=== PATIENT | male | born 1985 | race Caucasian/White ===

== ENCOUNTER 2022-05-06 19:10 | Emergency (ER) | payer SELFPAY ==
--- NOTE | 2022-05-06 | ECG_ITS ---
Test Reason : cp Blood Pressure : / mmHG Vent. Rate : 086 BPM Atrial Rate : 086 BPM P-R Int : 136 ms QRS Dur : 076 ms QT Int : 370 ms P-R-T Axes : 051 043 057 degrees QTc Int : 442 ms Normal sinus rhythm Possible Left atrial enlargement Left ventricular hypertrophy ( Sokolow-Leyva , Romhilt-Vigil ) Abnormal ECG No previous ECGs available Referred By: Generic ED Physician Electronically Signed By:PORSHA YEUNG MD
[2022-05-06 19:24] VITALS: BP 132/73; PULSE 93; RESP 16; O2SAT 95; BMI 19.1
--- NOTE | 2022-05-06 21:00 | PC.NURSE ---
Pt c/o chest pain and requesting help with detox from opiates and cocaine. Pt ambivalent with blood work and urine sample. Pt requesting to speak with family prior to having bloodwork and urine. pt given ED phone. Pt chinese speaking
[2022-05-06 21:01] LABS: Ethanol < 10 mg/dL
[2022-05-06 21:02] LABS: Anion Gap 12 (12-20); Blood Urea Nitrogen 11 mg/dL (9-16); Calcium 9.6 mg/dL (8.4-10.2); Carbon Dioxide 27 mmol/L (22-29); Chloride 103 mmol/L (96-108); Creatinine Clr Calc Pharmacy 110.3; Estimated Glomerular Filt Rate > 60; Glucose Random 81 mg/dL (60-115); Potassium 4.2 mmol/L (3.3-5.1); Sodium 138 mmol/L (135-145)
[2022-05-06 21:05] LABS: Amphetamine Screen Urine Not Detected (Not Detect); Barbiturates, Urine Not Detected (Not Detect); Benzodiazepines Screen Urine Not Detected (Not Detect); Cannabinoid Screen Urine POSITIVE (Not Detect); Cocaine Screen Urine POSITIVE (Not Detect); Fentanyl, urine POSITIVE (Not Detect); Opiate Screen Urine POSITIVE (Not Detect); Phencyclidine Screen Urine Not Detected (Not Detect)
[2022-05-06 21:07] LABS: Troponin-I High Sensitivity < 3.5 ng/L (<3.5-35.0)
--- NOTE | 2022-05-06 21:30 | PC.NURSE ---
Pt agreeable to blood work and urine sample Blood and urine sent Pt denies SI and HI at this time but states sometimes hears voices. Will continue to monitor
--- NOTE | 2022-05-06 22:08 | ED_ITS ---
HPI - Alcohol General Chief Complaint: ETOH/Substance Use Stated Complaint: ETOH Time Seen by Provider: 05/06/22 21:41 Source: patient and EMS Mode of arrival: EMS Limitations: no limitations History of Present Illness HPI narrative: This is a 37-year-old male with a history of polysubstance abuse who presents today seeking detox resources. Patient tells me he sniffs cocaine and heroin daily. His last use was just prior to arrival. He uses up to 1 bundle of heroin daily. He denies any IV drug abuse. He denies any alcohol use. He does smoke cigarettes. He has no physical complaints. He denies any suicidal or homicidal ideations. Related Data Allergies Allergy/AdvReac Type Severity Reaction Status Date / Time seafood Allergy Hives Verified 05/06/22 19:57 Review of Systems Review of Systems: Yes all other systems are reviewed and are negative Constitutional: Constitutional: Reports no additional constitutional complaints, Denies body ache(s), Denies chills, Denies fever(s), Denies headache(s) and Denies weakness Eyes: Eyes: Reports no additional eye complaints and Denies change in vision ENT: Reports system reviewed and no additional complaints, except as documented, Denies dizziness, Denies headache(s), Denies nasal congestion, Denies nasal discharge and Denies neck pain Cardiovascular: Cardiovascular: Reports no additional cardiovascular complaints, Denies chest pain, Denies leg edema and Denies dyspnea Respiratory: Respiratory: Reports no additional respiratory complaints, Denies cough and Denies dyspnea Gastrointestinal: Gastrointestinal: Reports no additional gastrointestinal complaints, Denies abdominal pain, Denies diarrhea, Denies nausea and Denies vomiting Genitourinary: Genitourinary: Denies urinary incontinence Musculoskeletal: Musculoskeletal: Reports no additional musculoskeletal complaints, Denies back pain, Denies arthralgias, Denies joint swelling, Denies neck pain, Denies numbness and Denies tingling Integumentary/Breasts: Skin/Breast: Reports system reviewed and no additional complaints, except as docu and Denies rash Neurologic: Reports system reviewed and no additional complaints, except as documented, Denies dizziness, Denies headache(s), Denies numbness, Denies tingling and Denies weakness Psychiatric: Psychiatric: Denies suicidal ideation PMFSH Past Medical History Attestation statement: The following information was validated with the patient. Source: old records reviewed and nursing notes reviewed Social History Social History Advance Directives: No Advance Directives Information Provided: No Physical Exam ED Vital Signs: Vital Signs - 24 hr 05/06/22 19:24 05/06/22 22:24 05/07/22 00:23 Pulse Rate 93 64 67 Respiratory Rate 16 18 18 Blood Pressure 132/73 115/56 L 118/57 L Pulse Oximetry 95 100 99 Oxygen Delivery Method Room Air Room Air Room Air BMI result Body Mass Index 19.1 Const Other: Lethargic but arouses to verbal Orientation/consciousness: patient oriented x3 Limitations: no limitations HENMT Head: Yes normal to inspection Ears: hearing grossly normal bilaterally General nose exam: Normal external nose present Face and sinus: Yes normal facial exam Mouth: Normal oral and palatal mucosa present Throat: Yes posterior oropharynx normal and Yes tonsils normal Eyes General: appearance normal, both eyes and all related structures Pupils: Equal, round and reactive pupils present Neck Neck: Yes normal visual inspection Chest Chest palpation & inspection: normal inspection of the chest Resp Effort & Inspection: normal respiratory effort Auscultation: clear to auscultation bilaterally Cardio Rate: regular rate Rhythm: regular rhythm Peripheral pulses: Peripheral pulses 2+ throughout GI Inspection: Yes normal to inspection Back/Spine/Pelvis Thoracic/Lumbar Spine: thoracic and lumbar spine normal to inspection Skin General skin exam: no rashes or lesions noted Neuro General: patient oriented x3 and moves all extremities Cranial nerves: Yes Equal, round and reactive pupils present Cognition (Neuro): normal cognition Gait exam (Neuro): Normal gait present Motor exam (neuro): 5/5 motor strength present throughout Sensory Exam: Normal double simultaneous stimulation for sensation Extrem General: Yes normal to inspection, Yes no pedal edema and Yes no calf tenderness Course Reevaluation(s) Reevaluation #1: Patient is still lethargic. He will need to be re-evaluated and discharged when he is clinically sober. Placed in physician observation pending disposition. Sign-out to Dr. Carballo pending above Time: 02:00 MDM - Alcohol MDM Narrative Medical decision making narrative: 37-year-old male with a history of polysubstance use here seeking detox resources. No suicidal thoughts. No physical complaints. No concern for acute ingestion or trauma. Patient did use heroin and cocaine prior to arrival. He is lethargic but arouses to verbal. Normal neurological exam. Normal vital signs. He initially was complaining of some chest pain but denies chest pain to me. Will obtain a organ recovery coordinator consultation Medical Records Attestation: I reviewed the patient's medical records. Lab Data Attestation: I reviewed the patient's lab results. Result diagrams: 05/06/22 20:42 Labs: Lab Results 05/06/22 05/06/22 05/06/22 Range/Units 20:42 20:42 20:42 Sodium 138 (135-145) mmol/L Potassium 4.2 (3.3-5.1) mmol/L Chloride 103 (96-108) mmol/L Carbon Dioxide 27 (22-29) mmol/L Anion Gap 12 (12-20) BUN 11 (9-16) mg/dL Creatinine 0.79 (0.5-1.4) mg/dL Estim Creat Clear Calc 110.3 Estimated GFR > 60 Random Glucose 81 (60-115) mg/dL Calcium 9.6 (8.4-10.2) mg/dL Troponin I High Sens < 3.5 (<3.5-35.0) ng/L Urine Opiates Screen (Not Detect) Urine Fentanyl Screen (Not Detect) Ur Barbiturates Screen (Not Detect) Ur Phencyclidine Scrn (Not Detect) Ur Amphetamines Screen (Not Detect) U Benzodiazepines Scrn (Not Detect) Urine Cocaine Screen (Not Detect) U Marijuana (THC) Screen (Not Detect) Ethyl Alcohol < 10 mg/dL 05/06/22 Range/Units 20:42 Sodium (135-145) mmol/L Potassium (3.3-5.1) mmol/L Chloride (96-108) mmol/L Carbon Dioxide (22-29) mmol/L Anion Gap (12-20) BUN (9-16) mg/dL Creatinine (0.5-1.4) mg/dL Estim Creat Clear Calc Estimated GFR Random Glucose (60-115) mg/dL Calcium (8.4-10.2) mg/dL Troponin I High Sens (<3.5-35.0) ng/L Urine Opiates Screen POSITIVE H (Not Detect) Urine Fentanyl Screen POSITIVE H (Not Detect) Ur Barbiturates Screen Not Detected (Not Detect) Ur Phencyclidine Scrn Not Detected (Not Detect) Ur Amphetamines Screen Not Detected (Not Detect) U Benzodiazepines Scrn Not Detected (Not Detect) Urine Cocaine Screen POSITIVE H (Not Detect) U Marijuana (THC) Screen POSITIVE H (Not Detect) Ethyl Alcohol mg/dL ECG Data ECG #1: Attestation: I personally reviewed and interpreted this ECG as follows: ECG interpretation date: 05/06/22 ECG interpretation time: 19:31 Interpretation: Normal sinus rhythm with a rate 86, normal GA, normal QRS, normal QT. LVH Discharge Plan Discharge Clinical Impression: Polysubstance abuse Patient Disposition: Still a Patient Instructions: Polysubstance Abuse (ED) Additional Instructions: Follow-up with the [facility] Referrals: Physician,None [Primary Care Provider] -
[2022-05-06 22:24] VITALS: BP 115/56; PULSE 64; RESP 18; O2SAT 100
[2022-05-07 00:23] VITALS: BP 118/57; PULSE 67; RESP 18; O2SAT 99
[2022-05-07 02:15] VITALS: BP 116/58; PULSE 68; RESP 18; O2SAT 99
--- NOTE | 2022-05-07 05:30 | PC.NURSE ---
Pt woke up alert and oriented. Encouraged pt to get a ride home as he will be discharged home. Pt now requesting help for detox. Dr. Carballo made aware.
--- NOTE | 2022-05-07 06:18 | PC.NURSE ---
N crisis referral completed
[2022-05-07 06:25] VITALS: BP 122/61; PULSE 65; RESP 18; O2SAT 99
--- NOTE | 2022-05-07 08:51 | PC.NURSE ---
financial coach and BHN at bedside assessing pt at this time
--- NOTE | 2022-05-07 10:45 | MHC.RECOVSUP ---
Recovery Support note: Patient is a 37 year old Chinese speaking male who presented to [facility] ED seeking detox. Patient is uninsured at this time. Patient reports using one bundle a day intranasally in addition to crack cocaine. Referred to [facility] and accepted for admission. Discussed plan with patient and [facility] oiler and greaser. No questions at this time. Patient will be transported to facility via [employer].
[2022-05-07 11:43] VITALS: BP 157/60; PULSE 97; RESP 16; O2SAT 98
--- NOTE | 2022-05-07 12:13 | MHC.RECOVSUP ---
Recovery Support note: Patient discharged to [facility] for transportation to [facility]. Patient declined services, stating something is up. This conventional underwriter encouraged patient to go to treatment and patient continued to decline.
== END 2022-05-07 11:44 | disposition other institution (70) ==
PROVIDERS: Emergency Medicine; Emergency Provider Emergency Medicine Emergency Medical Services
DX: F19.10 Other psychoactive substance abuse, uncomplicated (principal); R53.83 Other fatigue
CPT/HCPCS: 36415; 80048; 80307; 82077; 84484; 93005; 99284

== ENCOUNTER 2022-07-26 17:27 | Emergency (ER) | payer SELFPAY ==
--- NOTE | ~2022-07-26 | CT_ITS ---
EXAMINATION: CT ABDOMEN AND PELVIS WITHOUT CONTRAST CLINICAL INFORMATION: Flank pain COMPARISON: None TECHNIQUE: Multidetector volumetric imaging was performed from the superior aspect of the liver through the pubic symphysis. Sagittal and coronal reformatted images were obtained on the technologist's workstation. This CT examination was performed using dose optimization techniques as appropriate, variously including the following: *Automated exposure control *Adjustment of mA and/or kV according to patient size (this includes techniques or standardized protocols for targeted exams where dose is matched to indication/reason for exam; i.e. extremities or head) *Use of iterative reconstruction technique DLP: 347 mGy-cm FINDINGS: LUNG BASES: Minimal dependent atelectasis. LIVER, GALLBLADDER, AND BILIARY TREE: The liver is normal in size, shape, and attenuation. No focal hepatic lesion or biliary ductal dilatation is identified. The gallbladder is contracted and not adequately evaluated. PANCREAS: Unremarkable. SPLEEN: Unremarkable. ADRENAL GLANDS: Unremarkable. KIDNEYS AND URETERS: No hydronephrosis or obstructing calculus identified bilaterally. There is a 3 mm calculus in the mid left kidney. BLADDER: Minimally distended and grossly unremarkable. GASTROINTESTINAL TRACT: No evidence of bowel obstruction. No significant colonic wall thickening is seen. The appendix is unremarkable. No free air is seen. ABDOMINAL WALL: No significant hernia is appreciated. LYMPH NODES: No lymphadenopathy is seen, though assessment is limited in the absence of intravenous contrast. VASCULAR: Mild atherosclerotic calcification. PELVIC VISCERA: Unremarkable. Trace free fluid suspected. OSSEOUS STRUCTURES: Unremarkable. CT/CT abdomen pelvis wo IV con IMPRESSION: 1. No hydronephrosis or obstructing calculus. Mid left renal calculus noted measuring 3 mm. 2. Trace pelvic free fluid, of uncertain etiology. 3. Contracted gallbladder, not adequately assessed.
[2022-07-26 17:34] VITALS: BP 105/82; PULSE 120; RESP 18; TEMP 37; O2SAT 98; BMI 18.1
[2022-07-26 17:56] LABS: MANUAL DIFF FLAG NO
[2022-07-26 18:06] LABS: Basophils Percent Auto 0.5 % (0-2); Eosinophils Percent Auto 0.1 % (0-4); Hematocrit 38.2 % (42.0-52.0); Hemoglobin 12.6 g/dl (14.0-18.0); Imm Gran Abs Auto 0.03 X10*3/uL (0.00-0.03); Imm Gran Pct Auto 0.3 % (0.0-0.4); Lymphocytes Absolute Auto 2.2 X10*3/uL (1.2-4.9); Lymphocytes Percent Auto 24.8 % (20-40); Mean Corpuscular Hemoglobin 29.9 pg (27.0-33.0); Mean Corpuscular Volume 90.7 fL (80.0-98.0); Mean Platelet Volume 9.4 fL (9.4-12.4); Monocytes Absolute Auto 0.4 X10*3/uL (0.1-1.2); Monocytes Percent Auto 4.3 % (2-11); Neutrophils Absolute Auto 6.2 x10*3/uL (2.0-8.3); Platelet Count 352 X10*3/uL (160-400); Red Blood Count 4.21 X10*6/uL (4.60-5.80); Red Cell Distribution Width 13.9 % (11.0-16.0); White Blood Count 8.9 X10*3/uL (4.8-10.8)
[2022-07-26 18:11] LABS: Anion Gap 15 (12-20); Blood Urea Nitrogen 13 mg/dL (9-16); Calcium 9.5 mg/dL (8.4-10.2); Carbon Dioxide 28 mmol/L (22-29); Chloride 103 mmol/L (96-108); Creatinine Clr Calc Pharmacy 90.8; Estimated Glomerular Filt Rate > 60; Glucose Random 101 mg/dL (60-115); Potassium 4.6 mmol/L (3.3-5.1); Sodium 141 mmol/L (135-145)
[2022-07-26 20:49] VITALS: BP 151/95; PULSE 122; RESP 18; TEMP 37.2; O2SAT 100
[2022-07-26] MEDS: Acetaminophen 325 MG TABLET 650 MG PO (20:51)
[2022-07-26 22:07] LABS: Appearance Urine Clear; Color Urine Dark Yellow; Glucose Urine UA Negative (Negative); Leukocyte Esterase Urine Small (1+) (Negative); Nitrite Urine Negative (Negative); PH 5.5 (5.0-9.0); Specific Gravity - Urine 1.025 (1.005-1.025); Urine Blood Negative (Negative); Urine Ketones Trace mg/dL (Negative); Urine Protein Trace mg/dL (Neg-Trace)
[2022-07-26 22:32] LABS: Bacteria Urine None Seen (None Seen); Calcium Oxalate Crystals Urine Present; Squamous Epithelial Cell Urine 0-2 /HPF (0-2); UACC Culture Trigger YES; WBC Urine 0-5 /HPF (0-5)
--- NOTE | 2022-07-27 00:08 | ED.MALEGU ---
HPI - Male Genitourinary General Chief complaint: Urogenital-Male Stated complaint: abd pain Time Seen by Provider: 07/27/22 00:08 Source: patient Mode of arrival: ambulatory Related Data Previous Rx's Medication Instructions Recorded levofloxacin 750 mg tablet 750 mg PO DAILY #7 tabs 07/27/22 Allergies Allergy/AdvReac Type Severity Reaction Status Date / Time seafood Allergy Hives Verified 05/06/22 19:57 [facility] Social History Social History Patient Tobacco Use Status: Current everyday Tobacco user Use of substances other than those prescribed or required for medical reasons: Yes Substance Use Type: Crack/Cocaine Advance Directives: No Advance Directives Information Provided: Yes Physical Exam Vital Signs: Vital Signs: Last Vital Signs Temp 98.9 F 07/26/22 20:49 Pulse 74 07/27/22 02:18 Resp 14 07/27/22 02:18 BP 109/66 07/27/22 02:18 Pulse Ox 99 07/27/22 02:18 O2 Del Method 07/27/22 02:18 BMI result Body Mass Index 18.1 MDM - Male Genitourinary Lab Data Result diagrams: 07/26/22 17:50 07/26/22 17:50 Labs: Lab Results 07/26/22 07/26/22 07/26/22 Range/Units 17:50 17:50 20:56 WBC 8.9 (4.8-10.8) X10*3/uL RBC 4.21 L (4.60-5.80) X10*6/uL Hgb 12.6 L (14.0-18.0) g/dl Hct 38.2 L (42.0-52.0) % MCV 90.7 (80.0-98.0) fL MCH 29.9 (27.0-33.0) pg MCHC 33.0 (31.0-36.0) g/dl RDW 13.9 (11.0-16.0) % Plt Count 352 (160-400) X10*3/uL MPV 9.4 (9.4-12.4) fL Immature Gran % (Auto) 0.3 (0.0-0.4) % Neut % (Auto) 70.0 (45-73) % Lymph % (Auto) 24.8 (20-40) % [place] % (Auto) 4.3 (2-11) % Eos % (Auto) 0.1 (0-4) % Baso % (Auto) 0.5 (0-2) % Lymph # (Auto) 2.2 (1.2-4.9) X10*3/uL [place] # (Auto) 0.4 (0.1-1.2) X10*3/uL Eos # (Auto) 0.0 (0.0-0.4) X10*3/uL Baso # (Auto) 0.0 (0.0-0.2) X10*3/uL Abs Immat Gran (auto) 0.03 (0.00-0.03) X10*3/uL Absolute Neuts (auto) 6.2 (2.0-8.3) x10*3/uL Absolute Nucleated RBC 0.000 (0.0-0.012) X10*3/uL Nucleated RBC % (auto) 0.0 (0.0-0.2) /100WBC Sodium 141 (135-145) mmol/L Potassium 4.6 (3.3-5.1) mmol/L Chloride 103 (96-108) mmol/L Carbon Dioxide 28 (22-29) mmol/L Anion Gap 15 (12-20) BUN 13 (9-16) mg/dL Creatinine 0.91 (0.5-1.4) mg/dL Estim Creat Clear Calc 90.8 Estimated GFR > 60 Random Glucose 101 (60-115) mg/dL Calcium 9.5 (8.4-10.2) mg/dL Total Bilirubin 0.4 (0.0-1.0) mg/dL Direct Bilirubin 0.2 (0.0-0.5) mg/dL AST 20 (5-37) U/L ALT 10 (0-40) U/L Alkaline Phosphatase 50 (39-117) U/L Total Protein 7.7 (6.5-8.0) g/dL Albumin 4.5 (3.5-5.0) g/dL Lipase 16 (8-78) U/L Urine Color Dark Yellow Urine Appearance Clear Urine pH 5.5 (5.0-9.0) Ur Specific [place] 1.025 (1.005-1.025) Urine Protein Trace (Neg-Trace) mg/dL Urine Glucose (UA) Negative (Negative) mg/dL Urine Ketones Trace (Negative) mg/dL Urine Blood Negative (Negative) Urine Nitrite Negative (Negative) Ur Leukocyte Esterase Small (1+) H (Negative) Urine RBC 3-5 H (0-2) /HPF Urine WBC 0-5 (0-5) /HPF Ur Squamous Epith Cells 0-2 (0-2) /HPF Calcium Oxalate Crystal Present Urine Bacteria None Seen (None Seen) Hyaline Casts 3-5 (0-2) /LPF Chlam trachomat DNA PCR (Not Detect.) N.gonorrhoeae DNA (PCR) (Not Detect.) 07/27/22 Range/Units 02:25 WBC (4.8-10.8) X10*3/uL RBC (4.60-5.80) X10*6/uL Hgb (14.0-18.0) g/dl Hct (42.0-52.0) % MCV (80.0-98.0) fL MCH (27.0-33.0) pg MCHC (31.0-36.0) g/dl RDW (11.0-16.0) % Plt Count (160-400) X10*3/uL MPV (9.4-12.4) fL Immature Gran % (Auto) (0.0-0.4) % Neut % (Auto) (45-73) % Lymph % (Auto) (20-40) % [place] % (Auto) (2-11) % Eos % (Auto) (0-4) % Baso % (Auto) (0-2) % Lymph # (Auto) (1.2-4.9) X10*3/uL [place] # (Auto) (0.1-1.2) X10*3/uL Eos # (Auto) (0.0-0.4) X10*3/uL Baso # (Auto) (0.0-0.2) X10*3/uL Abs Immat Gran (auto) (0.00-0.03) X10*3/uL Absolute Neuts (auto) (2.0-8.3) x10*3/uL Absolute Nucleated RBC (0.0-0.012) X10*3/uL Nucleated RBC % (auto) (0.0-0.2) /100WBC Sodium (135-145) mmol/L Potassium (3.3-5.1) mmol/L Chloride (96-108) mmol/L Carbon Dioxide (22-29) mmol/L Anion Gap (12-20) BUN (9-16) mg/dL Creatinine (0.5-1.4) mg/dL Estim Creat Clear Calc Estimated GFR Random Glucose (60-115) mg/dL Calcium (8.4-10.2) mg/dL Total Bilirubin (0.0-1.0) mg/dL Direct Bilirubin (0.0-0.5) mg/dL AST (5-37) U/L ALT (0-40) U/L Alkaline Phosphatase (39-117) U/L Total Protein (6.5-8.0) g/dL Albumin (3.5-5.0) g/dL Lipase (8-78) U/L Urine Color Urine Appearance Urine pH (5.0-9.0) Ur Specific [place] (1.005-1.025) Urine Protein (Neg-Trace) mg/dL Urine Glucose (UA) (Negative) mg/dL Urine Ketones (Negative) mg/dL Urine Blood (Negative) Urine Nitrite (Negative) Ur Leukocyte Esterase (Negative) Urine RBC (0-2) /HPF Urine WBC (0-5) /HPF Ur Squamous Epith Cells (0-2) /HPF Calcium Oxalate Crystal Urine Bacteria (None Seen) Hyaline Casts (0-2) /LPF Chlam trachomat DNA PCR NOT DETECTED (Not Detect.) N.gonorrhoeae DNA (PCR) NOT DETECTED (Not Detect.) Discharge Plan Discharge Clinical Impression: Urinary tract infection Patient Disposition: Home, Self-Care Instructions: Urinary Tract Infection in Men (ED) Prescriptions: New levofloxacin 750 mg tablet 750 mg PO DAILY Qty: 7 0RF Referrals: Benjamin Adams MD [Physician] - Interventions: ED Discharge Assessment Last Done: 07/27/22 02:46 Discharge Date/Time: 07/27/22 02:35
[2022-07-27] MEDS: 0.9 % Sodium Chloride 1,000 ML 999 ML IV (00:30)
[2022-07-27 00:31] VITALS: BP 118/68; PULSE 75; RESP 14; O2SAT 99
--- NOTE | 2022-07-27 00:41 | ED_ITS ---
HPI - Abdominal Pain General Chief Complaint: Urogenital-Male Stated Complaint: abd pain Time Seen by Provider: 07/27/22 00:08 Source: patient and certified court/medical interpreter Mode of arrival: ambulatory Limitations: no limitations History of Present Illness HPI narrative: 37-year-old male came in for evaluation of 3 weeks of left-sided abdominal pain and frequency urination. Increased urinary frequency and urge to urinate, patient stated that he does not drink enough p.o. hydration, no blood or discharge noted by the patient no genital rash or ulceration, sexually not active with no risk for STDs as reported by the patient. Never had history of kidney stones, no history of abdominal surgery. Related Data Previous Rx's Medication Instructions Recorded levofloxacin 750 mg tablet 750 mg PO DAILY #7 tabs 07/27/22 Allergies Allergy/AdvReac Type Severity Reaction Status Date / Time seafood Allergy Hives Verified 05/06/22 19:57 Review of Systems Review of Systems All other systems are reviewed and are negative Constitutional: Reports as per HPI and Reports no additional constitutional complaints Eyes: Reports as per HPI and Reports no additional eye complaints Reports system reviewed and no additional complaints, except as documented Cardiovascular: Reports as per HPI and Reports no additional cardiovascular complaints Respiratory: Reports as per HPI and Reports no additional respiratory complaints Gastrointestinal: Reports as per HPI and Reports no additional gastrointestinal complaints Genitourinary: Reports no additional female genitourinary complaints Musculoskeletal: Reports no additional musculoskeletal complaints Skin/Breast: Reports system reviewed and no additional complaints, except as docu Psychiatric: Reports no additional psychiatric complaints Endocrine: Reports no additional endocrine complaints Hematologic/Lymphatic: Reports no additional hematologic/lymphatic complaints Allergic/Immunologic: Reports no additional allergic/immunologic complaints Reports system reviewed and no additional complaints, except as documented and Reports Abnormal speech present [facility] Social History Social History Patient Tobacco Use Status: Current everyday Tobacco user Use of substances other than those prescribed or required for medical reasons: Yes Substance Use Type: Crack/Cocaine Advance Directives: No Advance Directives Information Provided: Yes Physical Exam ED Vital Signs: Vital Signs - 24 hr 07/26/22 17:34 07/26/22 20:49 07/27/22 00:31 Temperature 98.6 F 98.9 F Pulse Rate 120 H 122 H 75 Respiratory Rate 18 18 14 Blood Pressure 105/82 151/95 H 118/68 Pulse Oximetry 98 100 99 Oxygen Delivery Method Room Air Room Air Room Air BMI result Body Mass Index 18.1 Vital signs have been reviewed as appeared to be correct. Blood pressure normal. Heart rate normal. Respiration rate normal. Temperature normal. Oxygen saturation normal. Appearance: Alert. Oriented X3. No acute distress. Head: Normal external exam. Normocephalic. Atraumatic. No Rosas signs noted. No raccoon eyes noted Eyes: PERRLA. EOMI. Conjunctiva and sclera normal. Eyelids normal. ENT: TM's Normal. Pharynx normal. Uvula midline. Moist mucous membranes. No trismus noted. No drooling noted. No muffled voice noted. Neck: Normal inspection. Neck supple. FROM. No adenopathy. Thyroid Normal. No meningeal signs. No neck mass noted. CVS: Normal heart rate and rhythm. Heart sound normal. No murmurs noted. Pulses normal throughout. Respiratory: No respiratory distress. Painless inspiration. Breath sounds normal. No wheezes/rales/rhonchi noted. Chest nontender. No accessory muscle usage noted or decreased air movement noted. Abdomen: Soft and nontender. Bowel sounds normal in all 4 quadrants. No distention noted. No organomegaly noted. No visible injury noted. Back: Left CVA tenderness. Full range of motion noted. Skin: Skin warm and dry. Normal skin color. Normal skin turgor. No rashes/lesions/lacerations noted. Extremities: No lower extremity edema. Extremities exhibit normal range of motion. Extremities nontender. Neuro: Oriented X 3. Cranial nerve exam: II-XII are grossly intact No motor deficit. No sensory deficit. Reflexes normal. Course Course Course Narrative: 37-year-old male came in with left flank pain with blood in the urine and dysuria, CT showed no kidney stone (signed out to Dr. Cobian to check the official reading of CT), patient declined any risk for STD since he is not sexually active and there is no discharge or rash or ulceration will test for STD, I will start the patient otherwise on a course of Levaquin and follow up with for further evaluation. MDM - Abdominal Pain Lab Data Attestation: I reviewed the patient's lab results. Result diagrams: 07/26/22 17:50 07/26/22 17:50 Labs: Lab Results 07/26/22 07/26/22 07/26/22 Range/Units 17:50 17:50 20:56 WBC 8.9 (4.8-10.8) X10*3/uL RBC 4.21 L (4.60-5.80) X10*6/uL Hgb 12.6 L (14.0-18.0) g/dl Hct 38.2 L (42.0-52.0) % MCV 90.7 (80.0-98.0) fL MCH 29.9 (27.0-33.0) pg MCHC 33.0 (31.0-36.0) g/dl RDW 13.9 (11.0-16.0) % Plt Count 352 (160-400) X10*3/uL MPV 9.4 (9.4-12.4) fL Immature Gran % (Auto) 0.3 (0.0-0.4) % Neut % (Auto) 70.0 (45-73) % Lymph % (Auto) 24.8 (20-40) % [place] % (Auto) 4.3 (2-11) % Eos % (Auto) 0.1 (0-4) % Baso % (Auto) 0.5 (0-2) % Lymph # (Auto) 2.2 (1.2-4.9) X10*3/uL [place] # (Auto) 0.4 (0.1-1.2) X10*3/uL Eos # (Auto) 0.0 (0.0-0.4) X10*3/uL Baso # (Auto) 0.0 (0.0-0.2) X10*3/uL Abs Immat Gran (auto) 0.03 (0.00-0.03) X10*3/uL Absolute Neuts (auto) 6.2 (2.0-8.3) x10*3/uL Absolute Nucleated RBC 0.000 (0.0-0.012) X10*3/uL Nucleated RBC % (auto) 0.0 (0.0-0.2) /100WBC Sodium 141 (135-145) mmol/L Potassium 4.6 (3.3-5.1) mmol/L Chloride 103 (96-108) mmol/L Carbon Dioxide 28 (22-29) mmol/L Anion Gap 15 (12-20) BUN 13 (9-16) mg/dL Creatinine 0.91 (0.5-1.4) mg/dL Estim Creat Clear Calc 90.8 Estimated GFR > 60 Random Glucose 101 (60-115) mg/dL Calcium 9.5 (8.4-10.2) mg/dL Total Bilirubin 0.4 (0.0-1.0) mg/dL Direct Bilirubin 0.2 (0.0-0.5) mg/dL AST 20 (5-37) U/L ALT 10 (0-40) U/L Alkaline Phosphatase 50 (39-117) U/L Total Protein 7.7 (6.5-8.0) g/dL Albumin 4.5 (3.5-5.0) g/dL Lipase 16 (8-78) U/L Urine Color Dark Yellow Urine Appearance Clear Urine pH 5.5 (5.0-9.0) Ur Specific [place] 1.025 (1.005-1.025) Urine Protein Trace (Neg-Trace) mg/dL Urine Glucose (UA) Negative (Negative) mg/dL Urine Ketones Trace (Negative) mg/dL Urine Blood Negative (Negative) Urine Nitrite Negative (Negative) Ur Leukocyte Esterase Small (1+) H (Negative) Urine RBC 3-5 H (0-2) /HPF Urine WBC 0-5 (0-5) /HPF Ur Squamous Epith Cells 0-2 (0-2) /HPF Calcium Oxalate Crystal Present Urine Bacteria None Seen (None Seen) Hyaline Casts 3-5 (0-2) /LPF Imaging Data CT scan - abdomen: Attestation: I personally reviewed and interpreted this imaging study as follows: Radiologist's impression: 1.? No hydronephrosis or obstructing calculus. Mid left renal calculus noted measuring 3 mm.? 2.? Trace pelvic free fluid, of uncertain etiology. 3.? Contracted gallbladder, not adequately assessed. Discharge Plan Discharge Clinical Impression: Urinary tract infection Patient Disposition: Home, Self-Care Instructions: Urinary Tract Infection in Men (ED) Prescriptions: New levofloxacin 750 mg tablet 750 mg PO DAILY Qty: 7 0RF Referrals: Benjamin Adams MD [Physician] -
[2022-07-27 00:42] LABS: Alanine Aminotransferase 10 U/L (0-40); Albumin Level 4.5 g/dL (3.5-5.0); Alkaline Phosphatase 50 U/L (39-117); Aspartate Amino Transferase 20 U/L (5-37); Bilirubin Direct 0.2 mg/dL (0.0-0.5); Bilirubin Total 0.4 mg/dL (0.0-1.0); Lipase 16 U/L (8-78); Total Protein 7.7 g/dL (6.5-8.0)
[2022-07-27 02:18] VITALS: BP 109/66; PULSE 74; RESP 14; O2SAT 99
[2022-07-27] MEDS: levoFLOXacin 750 MG TABLET PO (02:32)
[2022-07-27 04:04] LABS: CT PCR NOT DETECTED (Not Detect.); NG PCR NOT DETECTED (Not Detect.)
== END 2022-07-27 02:35 | disposition home or self-care (01) ==
PROVIDERS: Emergency Provider Emergency Medicine
DX: N39.0 Urinary tract infection, site not specified (principal); R10.9 Unspecified abdominal pain; R35.0 Frequency of micturition; F14.10 Cocaine abuse, uncomplicated; F17.200 Nicotine dependence, unspecified, uncomplicated; Z71.6 Tobacco abuse counseling; Z20.2 Contact with and (suspected) exposure to infections with a predominantly sexual mode of transmission; Z79.899 Other long term (current) drug therapy
CPT/HCPCS: 36415; 74176; 80048; 80076; 81001; 83690; 85025; 87086; 87491; 87591; 96360; 99284

== ENCOUNTER 2022-10-21 05:10 | Emergency (ER) | payer SELFPAY ==
--- NOTE | 2022-10-21 | ECG_ITS ---
Test Reason : cp Blood Pressure : / mmHG Vent. Rate : 092 BPM Atrial Rate : 092 BPM P-R Int : 126 ms QRS Dur : 072 ms QT Int : 340 ms P-R-T Axes : 053 053 058 degrees QTc Int : 420 ms Normal sinus rhythm Possible Left atrial enlargement Left ventricular hypertrophy ( Sokolow-Leyva , Romhilt-Vigil ) Abnormal ECG When compared with ECG of 06-MAY-2022 19:31, No significant change was found Referred By: Generic ED Physician Electronically Signed By:PORSHA YEUNG MD
--- NOTE | ~2022-10-21 | CT_ITS ---
EXAMINATION: CT ABDOMEN AND PELVIS WITHOUT CONTRAST CLINICAL INFORMATION: Left lower quadrant and flank pain COMPARISON: July 27, 2022 TECHNIQUE: Multidetector volumetric imaging was performed from the superior aspect of the liver through the pubic symphysis. Sagittal and coronal reformatted images were obtained on the technologist's workstation. This CT examination was performed using dose optimization techniques as appropriate, variously including the following: *Automated exposure control *Adjustment of mA and/or kV according to patient size (this includes techniques or standardized protocols for targeted exams where dose is matched to indication/reason for exam; i.e. extremities or head) *Use of iterative reconstruction technique DLP: 315 mGy-cm FINDINGS: LUNG BASES: The visualized lung bases are unremarkable. LIVER, GALLBLADDER, AND BILIARY TREE: The liver is prominent at 20 cm in vertical span. No focal hepatic lesion or biliary ductal dilatation is present. The gallbladder is not identified. PANCREAS: Unremarkable. SPLEEN: Unremarkable. ADRENAL GLANDS: Unremarkable. KIDNEYS AND URETERS: The kidneys are normal in size, shape, and attenuation. No hydronephrosis, hydroureter, or calculi seen. No perinephric stranding. The previously noted left renal calculus from study of July 27, 2022 is not evident on today's study and may have passed in the time period between now and that prior study. There is lack of limited evaluation of abdominal and pelvic contents related to lack of intra-abdominal fat and inability to separate adjacent soft tissue structures. No calculus along the expected path of the left ureter is seen and no secondary findings of obstructive uropathy are appreciated.. BLADDER: Unremarkable. GASTROINTESTINAL TRACT: No dilated loops of large or small bowel are evident. No free air is seen. No free fluid is noted. There is a large colonic stool burden present. The stomach is very distended. There are numerous nondilated fluid-filled loops of small bowel present. There appears be an appendicolith present. No evidence of acute appendicitis. ABDOMINAL WALL: No significant hernia is appreciated. LYMPH NODES: No lymphadenopathy appreciated to the extent seen with lack of intra-abdominal fat. VASCULAR: Unremarkable. PELVIC VISCERA: Unremarkable. OSSEOUS STRUCTURES: Unremarkable. CT/CT abdomen pelvis wo IV con IMPRESSION: Previously noted left renal calculus is not identified on today's study however no calculus is seen within the left ureter or urinary bladder and there is no hydronephrosis present and no definite findings to suggest obstructive uropathy. Limited evaluation due to lack of intra-abdominal fat as described. Large stool burden within the colon as well as dilated stomach. Prominent liver. Fleischner guidelines were followed.
[2022-10-21 05:17] VITALS: BP 135/73; PULSE 96; RESP 18; TEMP 36.5; O2SAT 97; BMI 18.8
[2022-10-21 07:46] VITALS: BP 130/94; PULSE 82; RESP 16; O2SAT 99
--- NOTE | 2022-10-21 07:47 | PC.NURSE ---
Pt alert/oriented x 3. Reports left sided rib pain x 1 month, unk injury. Denies cough or upper resp sx. LS CTA. Breathing even/unlabored. NSR on tele. Report substance abuse with heroin and cocaine, snorting, last use today.
[2022-10-21 08:09] LABS: MANUAL DIFF FLAG NO
--- NOTE | 2022-10-21 08:13 | ED.GENADULT ---
HPI - General Adult General Chief complaint: General Medical <DANNY Reid - Last Filed: 10/21/22 17:16> Stated complaint: Abd pain <DANNY Reid Last Filed: 10/21/22 17:16> Time Seen by Provider: 10/21/22 07:59 <DANNY Reid Last Filed: 10/21/22 17:16> Source: patient <DANNY Reid Last Filed: 10/21/22 17:16> Mode of arrival: ambulatory <DANNY Reid Last Filed: 10/21/22 17:16> Limitations: no limitations <DANNY Reid Last Filed: 10/21/22 17:16> History of Present Illness HPI narrative: 37 y/o male with history of UTI, polysubstance abuse presenting to the ER with lower abdominal pain for the last 2 months as well as newer onset of difficulty urinating and painful urination. Patient states he cannot recall when his urinary symptoms started but he has been having painful urination and difficulty passing his urine for some time. He has a history of UTI and feels similar to his previous symptoms. He is also concerned about STIs and would like to get treated today. Patient reports his lower abdominal pain is chronic and he uses intranasal heroin to help mask the pain. He has recently started on methadone but is continuing to use. He is interested in detox. He reports nausea but no vomiting or diarrhea. Last BM was yesterday and was normal. <DANNY Reid Last Filed: 10/21/22 17:16> MD complaint: Lower abdominal pain and urinary symptoms <DANNY Reid - Last Filed: 10/21/22 17:16> Onset (ago): month(s) <DANNY Reid Last Filed: 10/21/22 17:16> Location: abdomen and genitals <DANNY Reid Last Filed: 10/21/22 17:16> Radiation: non-radiation <DANNY Reid Last Filed: 10/21/22 17:16> Severity: moderate <DANNY Reid Last Filed: 10/21/22 17:16> Quality: aching <DANNY Reid Last Filed: 10/21/22 17:16> Pain Consistency: intermittent <DANNY Reid Last Filed: 10/21/22 17:16> Relieving factors: none <DANNY Reid Last Filed: 10/21/22 17:16> Exacerbating factors: other (Urination) <DANNY Reid Last Filed: 10/21/22 17:16> Associated symptoms: loss of appetite and nausea/vomiting <DANNY Reid Last Filed: 10/21/22 17:16> Treatments prior to arrival: none <DANNY Reid Last Filed: 10/21/22 17:16> Related Data Home medications: Previous Rx's Medication Instructions Recorded levofloxacin 750 mg tablet 750 mg PO DAILY #7 tabs 07/27/22 <DANNY Reid Last Filed: 10/21/22 17:16> Allergies/adverse reactions: Allergies Allergy/AdvReac Type Severity Reaction Status Date / Time seafood Allergy Hives Verified 10/21/22 05:26 <DANNY Reid Last Filed: 10/21/22 17:16> Review of Systems Review of Systems: Constitutional: No Fever, No Chills ENT/Mouth: No sore throat, No Rhinorrhea, No Swallowing Difficulty Cardiovascular: No Chest Pain, No SOB Respiratory: No Cough, No Sputum, No Wheezing, No dyspnea, +Palpitations Gastrointestinal: No Nausea, No Vomiting, No Diarrhea, +abdominal Pain, No Hematochezia, No Melena Genitourinary: + Dysuria, + Urinary Frequency, No Hematuria Musculoskeletal: No joint pain, No Myalgias Skin: No Skin Lesions, No rash Neuro: No Weakness, No Numbness, No Dizziness, No Headache Psych: +Anxiety/Panic, +Depression Heme/Lymph: No Bruising, No Lymphadenopathy Endocrine: No Polyuria, No Polydipsia <DANNY Reid Last Filed: 10/21/22 17:16> PMFSH Social History Social History: Social History Patient Tobacco Use Status: Current everyday Tobacco user Smoked in Last 30 Days: Yes Use of substances other than those prescribed or required for medical reasons: Yes Substance Use Type: Crack/Cocaine and Heroin Substance Use Frequency: Daily Last Used Substance: Just Prior to Admission Advance Directives: No <DANNY Reid - Last Filed: 10/21/22 17:16> Physical Exam ED Vital Signs: Vital Signs - 24 hr 10/21/22 12:48 10/21/22 15:22 10/21/22 23:03 Temperature Pulse Rate 57 61 Respiratory Rate 18 18 17 Blood Pressure 117/65 109/71 Pulse Oximetry 98 100 Oxygen Delivery Method Room Air Room Air 10/22/22 00:00 10/22/22 02:00 10/22/22 07:28 Temperature 98.9 F 98.9 F 98 F Pulse Rate 68 88 Respiratory Rate 16 16 18 Blood Pressure 117/55 L 118/60 119/72 Pulse Oximetry 98 98 Oxygen Delivery Method Room Air Room Air Room Air BMI result Body Mass Index 18.8 <DANNY Reid - Last Filed: 10/21/22 17:16> Vital Signs - 24 hr 10/21/22 12:48 10/21/22 15:22 10/21/22 23:03 Temperature Pulse Rate 57 61 Respiratory Rate 18 18 17 Blood Pressure 117/65 109/71 Pulse Oximetry 98 100 Oxygen Delivery Method Room Air Room Air 10/22/22 00:00 10/22/22 02:00 10/22/22 07:28 Temperature 98.9 F 98.9 F 98 F Pulse Rate 68 88 Respiratory Rate 16 16 18 Blood Pressure 117/55 L 118/60 119/72 Pulse Oximetry 98 98 Oxygen Delivery Method Room Air Room Air Room Air BMI result Body Mass Index 18.8 <DANNY Osuna - Last Filed: 10/22/22 10:56> Appearance: Alert. Oriented X3. No acute distress. Eyes: Pupils equal, round and reactive to light. ENT: Pharynx normal. Neck: Normal inspection. Neck supple. CVS: Normal heart rate and rhythm. Pulses normal. Respiratory: No respiratory distress. Breath sounds normal. Abdomen: Soft, flat with mild LLQ tenderness without rebound or guarding, normal +BS x4 Skin: Skin warm and dry. Normal skin color. Normal skin turgor. No rashes. Extremities: No lower extremity edema. Neuro: Oriented X 3. No motor deficit. No sensory deficit. <DANNY Reid - Last Filed: 10/21/22 17:16> Course Course Course Narrative: 37 year old male presents to the ER for evaluation of lower abdominal pain for the last 2 months along with new onset of urinary symptoms. Will check basic labs and urinalysis. abdominal exam is benign. Hold off on imaging for now given the chronicity of his symptoms. Will treat empirically for CT/NG and test accordingly. <DANNY Reid Last Filed: 10/21/22 17:16> Reevaluation(s) Reevaluation #1: Lab workup was unremarkable. Urinalysis is negative for infection. Gonorrhea and chlamydia test sent. IM Rocephin and doxy have been ordered. A CT scan of the abdomen and pelvis show large stool burden within the colon as well as a dilated stomach. Previously noted left renal calculus is not identified. No hydronephrosis. Abdominal pains most likely due to constipation. Will start bowel regimen. Care team/recovery coaches to assess for detox placement. Physician observation started at 12:05pm. Patient placed in physician observation because patient is awaiting CARE team/catalyst recovery operator evaluation for detox.. At the time observation was started patient's vital signs were stable. Patient is alert and oriented. Neuro exam is non-focal. CV: RRR and lungs are clear. Will continue to monitor. <DANNY Reid - Last Filed: 10/21/22 17:16> Reevaluation #2: Patient seen by assistant tennis coach now. Patient did not intake at [facility] based on the telephone. There are no current beds available. Plan is to reassess tomorrow. Will continue monitor. CT NG is negative. No need to continue oral doxycycline. Will continue bowel regimen as needed for successful bowel movement. Will continue to monitor <DANNY Reid - Last Filed: 10/21/22 17:16> Reevaluation #3: Patient will be discharge in transported to [facility] for detox today at 16:30. Patient understands agrees with this plan. <DANNY Osuna Last Filed: 10/22/22 10:56> Time: 10:55 <DANNY Osuna Last Filed: 10/22/22 10:56> Medications Administered Generic Name Dose Route Start Last Admin Trade Name Freq PRN Reason Stop Dose Admin Nicotine Polacrilex 2 mg 10/21/22 23:42 10/21/22 23:58 Nicotine Polacrilex 2 Mg Gum BUCCAL 2 mg Q1H PRN Administration Nicotine Cravings Discontinued Medications Generic Name Dose Route Start Last Admin Trade Name Freq PRN Reason Stop Dose Admin Ceftriaxone Sodium 250 mg/ 0 mg 10/21/22 08:31 10/21/22 08:46 Lidocaine HCl 0.9 ml IM 10/21/22 08:32 250 kit ONCE ONE Administration Docusate Sodium 200 mg 10/21/22 12:04 10/21/22 12:43 Docusate Sodium 100 Mg Capsule PO 10/21/22 12:05 200 mg ONCE ONE Administration Doxycycline Monohydrate 100 mg 10/21/22 08:31 10/21/22 08:44 Doxycycline Monohydrate 100 Mg Capsule PO 10/21/22 08:32 100 mg ONCE ONE Administration Lorazepam 1 mg 10/21/22 23:42 10/21/22 23:58 Lorazepam 1 Mg Tablet PO 10/21/22 23:43 1 mg ONCE ONE Administration Polyethylene Glycol 17 gm 10/21/22 12:04 10/21/22 12:43 Polyethylene Glycol 3350 17 Gm Powd.Pack PO 10/21/22 12:05 17 gm ONCE ONE Administration Senna 15 ml 10/21/22 12:04 10/21/22 12:43 Senna [place] Extract Oral Syrup 15 Ml Syrup PO 10/21/22 12:05 15 ml ONCE ONE Administration <DANNY Reid - Last Filed: 10/21/22 17:16> Medications Administered Generic Name Dose Route Start Last Admin Trade Name Freq PRN Reason Stop Dose Admin Nicotine Polacrilex 2 mg 10/21/22 23:42 10/21/22 23:58 Nicotine Polacrilex 2 Mg Gum BUCCAL 2 mg Q1H PRN Administration Nicotine Cravings Discontinued Medications Generic Name Dose Route Start Last Admin Trade Name Freq PRN Reason Stop Dose Admin Ceftriaxone Sodium 250 mg/ 0 mg 10/21/22 08:31 10/21/22 08:46 Lidocaine HCl 0.9 ml IM 10/21/22 08:32 250 kit ONCE ONE Administration Docusate Sodium 200 mg 10/21/22 12:04 10/21/22 12:43 Docusate Sodium 100 Mg Capsule PO 10/21/22 12:05 200 mg ONCE ONE Administration Doxycycline Monohydrate 100 mg 10/21/22 08:31 10/21/22 08:44 Doxycycline Monohydrate 100 Mg Capsule PO 10/21/22 08:32 100 mg ONCE ONE Administration Lorazepam 1 mg 10/21/22 23:42 10/21/22 23:58 Lorazepam 1 Mg Tablet PO 10/21/22 23:43 1 mg ONCE ONE Administration Polyethylene Glycol 17 gm 10/21/22 12:04 10/21/22 12:43 Polyethylene Glycol 3350 17 Gm Powd.Pack PO 10/21/22 12:05 17 gm ONCE ONE Administration Senna 15 ml 10/21/22 12:04 10/21/22 12:43 Senna [place] Extract Oral Syrup 15 Ml Syrup PO 10/21/22 12:05 15 ml ONCE ONE Administration <DANNY Osuna - Last Filed: 10/22/22 10:56> Medical Decision Making Lab Data Result diagrams: : 10/21/22 08:06 10/21/22 08:06 <DANNY Reid - Last Filed: 10/21/22 17:16> Labs: Lab Results 10/21/22 10/21/22 10/21/22 Range/Units 08:06 08:06 08:06 WBC 10.6 (4.8-10.8) X10*3/uL RBC 3.97 L (4.60-5.80) X10*6/uL Hgb 11.9 L (14.0-18.0) g/dl Hct 35.9 L (42.0-52.0) % MCV 90.4 (80.0-98.0) fL MCH 30.0 (27.0-33.0) pg MCHC 33.1 (31.0-36.0) g/dl RDW 13.7 (11.0-16.0) % Plt Count 341 (160-400) X10*3/uL MPV 9.0 L (9.4-12.4) fL Immature Gran % (Auto) 0.3 (0.0-0.4) % Neut % (Auto) 50.3 (45-73) % Lymph % (Auto) 37.3 (20-40) % [place] % (Auto) 7.0 (2-11) % Eos % (Auto) 4.5 H (0-4) % Baso % (Auto) 0.6 (0-2) % Lymph # (Auto) 3.9 (1.2-4.9) X10*3/uL [place] # (Auto) 0.7 (0.1-1.2) X10*3/uL Eos # (Auto) 0.5 H (0.0-0.4) X10*3/uL Baso # (Auto) 0.1 (0.0-0.2) X10*3/uL Abs Immat Gran (auto) 0.03 (0.00-0.03) X10*3/uL Absolute Neuts (auto) 5.3 (2.0-8.3) x10*3/uL Absolute Nucleated RBC 0.000 (0.0-0.012) X10*3/uL Nucleated RBC % (auto) 0.0 (0.0-0.2) /100WBC Sodium 136 (135-145) mmol/L Potassium 3.4 D (3.3-5.1) mmol/L Chloride 103 (96-108) mmol/L Carbon Dioxide 26 (22-29) mmol/L Anion Gap 10 L (12-20) BUN 12 (9-16) mg/dL Creatinine 0.83 (0.5-1.4) mg/dL Estim Creat Clear Calc 103.7 Estimated GFR > 60 Random Glucose 136 H (60-115) mg/dL Calcium 8.9 D (8.4-10.2) mg/dL Magnesium 2.1 (1.6-2.6) mg/dL Total Bilirubin 0.2 (0.0-1.0) mg/dL Direct Bilirubin < 0.2 (0.0-0.5) mg/dL AST 20 (5-37) U/L ALT 25 (0-40) U/L Alkaline Phosphatase 47 (39-117) U/L Total Protein 6.5 (6.5-8.0) g/dL Albumin 4.0 (3.5-5.0) g/dL TSH 0.34 (0.32-4.0) uIU/mL Urine Color Urine Appearance Urine pH (5.0-9.0) Ur Specific [place] (1.005-1.025) Urine Protein (Neg-Trace) mg/dL Urine Glucose (UA) (Negative) mg/dL Urine Ketones (Negative) mg/dL Urine Blood (Negative) Urine Nitrite (Negative) Ur Leukocyte Esterase (Negative) Chlam trachomat DNA PCR (Not Detect.) COVID-19 ([facility]LA) (Negative) COVID-19 Clin Com N.gonorrhoeae DNA (PCR) (Not Detect.) 10/21/22 10/21/22 10/22/22 Range/Units 10:07 10:42 08:20 WBC (4.8-10.8) X10*3/uL RBC (4.60-5.80) X10*6/uL Hgb (14.0-18.0) g/dl Hct (42.0-52.0) % MCV (80.0-98.0) fL MCH (27.0-33.0) pg MCHC (31.0-36.0) g/dl RDW (11.0-16.0) % Plt Count (160-400) X10*3/uL MPV (9.4-12.4) fL Immature Gran % (Auto) (0.0-0.4) % Neut % (Auto) (45-73) % Lymph % (Auto) (20-40) % [place] % (Auto) (2-11) % Eos % (Auto) (0-4) % Baso % (Auto) (0-2) % Lymph # (Auto) (1.2-4.9) X10*3/uL [place] # (Auto) (0.1-1.2) X10*3/uL Eos # (Auto) (0.0-0.4) X10*3/uL Baso # (Auto) (0.0-0.2) X10*3/uL Abs Immat Gran (auto) (0.00-0.03) X10*3/uL Absolute Neuts (auto) (2.0-8.3) x10*3/uL Absolute Nucleated RBC (0.0-0.012) X10*3/uL Nucleated RBC % (auto) (0.0-0.2) /100WBC Sodium (135-145) mmol/L Potassium (3.3-5.1) mmol/L Chloride (96-108) mmol/L Carbon Dioxide (22-29) mmol/L Anion Gap (12-20) BUN (9-16) mg/dL Creatinine (0.5-1.4) mg/dL Estim Creat Clear Calc Estimated GFR Random Glucose (60-115) mg/dL Calcium (8.4-10.2) mg/dL Magnesium (1.6-2.6) mg/dL Total Bilirubin (0.0-1.0) mg/dL Direct Bilirubin (0.0-0.5) mg/dL AST (5-37) U/L ALT (0-40) U/L Alkaline Phosphatase (39-117) U/L Total Protein (6.5-8.0) g/dL Albumin (3.5-5.0) g/dL TSH (0.32-4.0) uIU/mL Urine Color Yellow Urine Appearance Turbid Urine pH 5.5 (5.0-9.0) Ur Specific [place] 1.025 (1.005-1.025) Urine Protein Trace (Neg-Trace) mg/dL Urine Glucose (UA) Negative (Negative) mg/dL Urine Ketones Negative (Negative) mg/dL Urine Blood Negative (Negative) Urine Nitrite Negative (Negative) Ur Leukocyte Esterase Negative (Negative) Chlam trachomat DNA PCR NOT DETECTED (Not Detect.) COVID-19 ([facility]ARLA) Negative (Negative) COVID-19 Clin Com See Note N.gonorrhoeae DNA (PCR) NOT DETECTED (Not Detect.) <DANNY Reid - Last Filed: 10/21/22 17:16> Lab Results 10/21/22 10/21/22 10/21/22 Range/Units 08:06 08:06 08:06 WBC 10.6 (4.8-10.8) X10*3/uL RBC 3.97 L (4.60-5.80) X10*6/uL Hgb 11.9 L (14.0-18.0) g/dl Hct 35.9 L (42.0-52.0) % MCV 90.4 (80.0-98.0) fL MCH 30.0 (27.0-33.0) pg MCHC 33.1 (31.0-36.0) g/dl RDW 13.7 (11.0-16.0) % Plt Count 341 (160-400) X10*3/uL MPV 9.0 L (9.4-12.4) fL Immature Gran % (Auto) 0.3 (0.0-0.4) % Neut % (Auto) 50.3 (45-73) % Lymph % (Auto) 37.3 (20-40) % [place] % (Auto) 7.0 (2-11) % Eos % (Auto) 4.5 H (0-4) % Baso % (Auto) 0.6 (0-2) % Lymph # (Auto) 3.9 (1.2-4.9) X10*3/uL [place] # (Auto) 0.7 (0.1-1.2) X10*3/uL Eos # (Auto) 0.5 H (0.0-0.4) X10*3/uL Baso # (Auto) 0.1 (0.0-0.2) X10*3/uL Abs Immat Gran (auto) 0.03 (0.00-0.03) X10*3/uL Absolute Neuts (auto) 5.3 (2.0-8.3) x10*3/uL Absolute Nucleated RBC 0.000 (0.0-0.012) X10*3/uL Nucleated RBC % (auto) 0.0 (0.0-0.2) /100WBC Sodium 136 (135-145) mmol/L Potassium 3.4 D (3.3-5.1) mmol/L Chloride 103 (96-108) mmol/L Carbon Dioxide 26 (22-29) mmol/L Anion Gap 10 L (12-20) BUN 12 (9-16) mg/dL Creatinine 0.83 (0.5-1.4) mg/dL Estim Creat Clear Calc 103.7 Estimated GFR > 60 Random Glucose 136 H (60-115) mg/dL Calcium 8.9 D (8.4-10.2) mg/dL Magnesium 2.1 (1.6-2.6) mg/dL Total Bilirubin 0.2 (0.0-1.0) mg/dL Direct Bilirubin < 0.2 (0.0-0.5) mg/dL AST 20 (5-37) U/L ALT 25 (0-40) U/L Alkaline Phosphatase 47 (39-117) U/L Total Protein 6.5 (6.5-8.0) g/dL Albumin 4.0 (3.5-5.0) g/dL TSH 0.34 (0.32-4.0) uIU/mL Urine Color Urine Appearance Urine pH (5.0-9.0) Ur Specific [place] (1.005-1.025) Urine Protein (Neg-Trace) mg/dL Urine Glucose (UA) (Negative) mg/dL Urine Ketones (Negative) mg/dL Urine Blood (Negative) Urine Nitrite (Negative) Ur Leukocyte Esterase (Negative) Chlam trachomat DNA PCR (Not Detect.) COVID-19 (KARLA) (Negative) COVID-19 Clin Com N.gonorrhoeae DNA (PCR) (Not Detect.) 10/21/22 10/21/22 10/22/22 Range/Units 10:07 10:42 08:20 WBC (4.8-10.8) X10*3/uL RBC (4.60-5.80) X10*6/uL Hgb (14.0-18.0) g/dl Hct (42.0-52.0) % MCV (80.0-98.0) fL MCH (27.0-33.0) pg MCHC (31.0-36.0) g/dl RDW (11.0-16.0) % Plt Count (160-400) X10*3/uL MPV (9.4-12.4) fL Immature Gran % (Auto) (0.0-0.4) % Neut % (Auto) (45-73) % Lymph % (Auto) (20-40) % [place] % (Auto) (2-11) % Eos % (Auto) (0-4) % Baso % (Auto) (0-2) % Lymph # (Auto) (1.2-4.9) X10*3/uL [place] # (Auto) (0.1-1.2) X10*3/uL Eos # (Auto) (0.0-0.4) X10*3/uL Baso # (Auto) (0.0-0.2) X10*3/uL Abs Immat Gran (auto) (0.00-0.03) X10*3/uL Absolute Neuts (auto) (2.0-8.3) x10*3/uL Absolute Nucleated RBC (0.0-0.012) X10*3/uL Nucleated RBC % (auto) (0.0-0.2) /100WBC Sodium (135-145) mmol/L Potassium (3.3-5.1) mmol/L Chloride (96-108) mmol/L Carbon Dioxide (22-29) mmol/L Anion Gap (12-20) BUN (9-16) mg/dL Creatinine (0.5-1.4) mg/dL Estim Creat Clear Calc Estimated GFR Random Glucose (60-115) mg/dL Calcium (8.4-10.2) mg/dL Magnesium (1.6-2.6) mg/dL Total Bilirubin (0.0-1.0) mg/dL Direct Bilirubin (0.0-0.5) mg/dL AST (5-37) U/L ALT (0-40) U/L Alkaline Phosphatase (39-117) U/L Total Protein (6.5-8.0) g/dL Albumin (3.5-5.0) g/dL TSH (0.32-4.0) uIU/mL Urine Color Yellow Urine Appearance Turbid Urine pH 5.5 (5.0-9.0) Ur Specific [place] 1.025 (1.005-1.025) Urine Protein Trace (Neg-Trace) mg/dL Urine Glucose (UA) Negative (Negative) mg/dL Urine Ketones Negative (Negative) mg/dL Urine Blood Negative (Negative) Urine Nitrite Negative (Negative) Ur Leukocyte Esterase Negative (Negative) Chlam trachomat DNA PCR NOT DETECTED (Not Detect.) COVID-19 ([facility]) Negative (Negative) COVID-19 Clin Com See Note N.gonorrhoeae DNA (PCR) NOT DETECTED (Not Detect.) <DANNY Osuna - Last Filed: 10/22/22 10:56> Critical Care Time Critical Care Time Critical Care Time: No <DANNY Reid - Last Filed: 10/21/22 17:16> Discharge Plan Discharge Clinical Impression: Constipation, Opioid use disorder <DANNY Reid - Last Filed: 10/21/22 17:16> Patient Disposition: Home, Self-Care <DANNY Reid - Last Filed: 10/21/22 17:16> Instructions: Constipation (ED), Opioid Use Disorder (ED) <DANNY Reid - Last Filed: 10/21/22 17:16> Prescriptions: No Action levofloxacin 750 mg tablet 750 mg PO DAILY Qty: 7 0RF <DANNY Reid - Last Filed: 10/21/22 17:16> Referrals: Physician,Unknown J [Primary Care Provider] - 2 days (your pcp) <DANNY Reid - Last Filed: 10/21/22 17:16>
[2022-10-21 08:14] LABS: Basophils Absolute Auto 0.1 X10*3/uL (0.0-0.2); Basophils Percent Auto 0.6 % (0-2); Eosinophils Absolute Auto 0.5 X10*3/uL (0.0-0.4); Eosinophils Percent Auto 4.5 % (0-4); Hematocrit 35.9 % (42.0-52.0); Hemoglobin 11.9 g/dl (14.0-18.0); Imm Gran Abs Auto 0.03 X10*3/uL (0.00-0.03); Imm Gran Pct Auto 0.3 % (0.0-0.4); Lymphocytes Absolute Auto 3.9 X10*3/uL (1.2-4.9); Lymphocytes Percent Auto 37.3 % (20-40); Mean Corpuscular HGB Conc 33.1 g/dl (31.0-36.0); Mean Corpuscular Volume 90.4 fL (80.0-98.0); Monocytes Absolute Auto 0.7 X10*3/uL (0.1-1.2); Neutrophils Absolute Auto 5.3 x10*3/uL (2.0-8.3); Neutrophils Percent Auto 50.3 % (45-73); Platelet Count 341 X10*3/uL (160-400); Red Blood Count 3.97 X10*6/uL (4.60-5.80); Red Cell Distribution Width 13.7 % (11.0-16.0); White Blood Count 10.6 X10*3/uL (4.8-10.8)
[2022-10-21 08:32] LABS: Alanine Aminotransferase 25 U/L (0-40); Alkaline Phosphatase 47 U/L (39-117); Anion Gap 10 (12-20); Aspartate Amino Transferase 20 U/L (5-37); Bilirubin Direct < 0.2 mg/dL (0.0-0.5); Bilirubin Total 0.2 mg/dL (0.0-1.0); Blood Urea Nitrogen 12 mg/dL (9-16); Calcium 8.9 mg/dL (8.4-10.2); Carbon Dioxide 26 mmol/L (22-29); Chloride 103 mmol/L (96-108); Creatinine Clr Calc Pharmacy 103.7; Estimated Glomerular Filt Rate > 60; Glucose Random 136 mg/dL (60-115); Magnesium 2.1 mg/dL (1.6-2.6); Potassium 3.4 mmol/L (3.3-5.1); Sodium 136 mmol/L (135-145); Total Protein 6.5 g/dL (6.5-8.0)
[2022-10-21] MEDS: Doxycycline Monohydrate 100 MG CAPSULE PO (08:44)
[2022-10-21 08:46] LABS: TSH reflex Free T4 0.34 uIU/mL (0.32-4.0)
[2022-10-21] MEDS: cefTRIAXone sodium 250 MG, Lidocaine HCl 1 % MPF 0.9 ML IM (08:46)
--- NOTE | 2022-10-21 08:49 | PC.NURSE ---
Pt. complains of flank pain radiating to the lower abdomen , dysuria, and nausea x 1 month. He also states he has been using drugs to deal with the pain and is interesting in detox. pt aware of need of urine sample and needing to drink.
[2022-10-21 10:12] LABS: Appearance Urine Turbid; Color Urine Yellow; Glucose Urine UA Negative (Negative); Leukocyte Esterase Urine Negative (Negative); Nitrite Urine Negative (Negative); PH 5.5 (5.0-9.0); Specific Gravity - Urine 1.025 (1.005-1.025); Urine Blood Negative (Negative); Urine Ketones Negative (Negative); Urine Protein Trace mg/dL (Neg-Trace)
[2022-10-21] MEDS: Docusate Sodium 100 MG CAPSULE 200 MG PO (12:43)
[2022-10-21] MEDS: polyethylene glycoL 3350 17 GM POWD.PACK PO (12:43)
[2022-10-21 12:48] VITALS: BP 117/65; PULSE 57; RESP 18; O2SAT 98
[2022-10-21 13:34] LABS: CT PCR NOT DETECTED (Not Detect.); NG PCR NOT DETECTED (Not Detect.)
[2022-10-21 15:22] VITALS: BP 109/71; PULSE 61; RESP 18; O2SAT 100
--- NOTE | 2022-10-21 15:44 | MHC.RECOVSUP ---
? Reason for consult:BOTH o? Current location:ED06h? o? Identified substance use concern:? -? Seeking ATS (detox) -? Support ?? Intervention: o? ATS bed search started/completed/in process o? Harm reduction discussion ? Plan: o? Bed search in progress to o? Follow up tomorrow? ? Additional information:[facility] met with pt, pt wants to go to detox, [facility] sent referral over to [facility] they do have a bed available, please follow up. PT already completed phone intake.
[2022-10-21 23:03] VITALS: RESP 17
--- NOTE | 2022-10-21 23:19 | PC.NURSE ---
Pt reported having large BM at 2300 today. This RN attempted to call [facility] to coordinate transfer back to detox facility but no one answered the phone. Charge nurse informed of pt's situation.
--- NOTE | 2022-10-21 23:33 | PC.NURSE ---
This RN able to contact [facility] staff. Staff informed this RN that pt could not be admitted tonight due to staffing. Pt informed of situation and is agreeable with plan to stay in the hospital tonight and being transferred to [facility] in the am. Staff at [facility] [place] admission line at [phone] at 0700 tomorrow to find out when the pt could be received.
[2022-10-21] MEDS: LORazepam 1 MG TABLET PO (23:58)
[2022-10-21] MEDS: Nicotine Polacrilex 2 MG GUM BUCCAL (23:58)
[2022-10-22] VITALS: BP 117/55; PULSE 68; RESP 16; TEMP 37.2; O2SAT 98
[2022-10-22 02:00] VITALS: BP 118/60; PULSE 88; RESP 16; TEMP 37.2; O2SAT 98
[2022-10-22 07:28] VITALS: BP 119/72; RESP 18; TEMP 36.6
--- NOTE | 2022-10-22 07:37 | PC.NURSE ---
Addendum entered by Saul Brar 10/22/22 09:28: Fax sent to Adriana at [facility] at [phone] Addendum entered by Saul Brar 10/22/22 09:21: This RN called [facility] again. [facility] says they will likely not be able to accept the patient until afternoon if they can at all today due to staffing Original Note: This RN attempted to call [facility] with no answer from facility. A voice message was left.
[2022-10-22 08:47] LABS: COVID-19 Test Negative (Negative); IDNOW Serial# 16C4AD1C
--- NOTE | 2022-10-22 11:11 | PC.NURSE ---
Addendum entered by Saul Brar 10/22/22 11:59: This RN called methadone clinic to verify dose but clinic closes at 10 am. Original Note: This RN called [facility] to attempt to give a nurse to nurse report. Spoke to Adriana who spoke to the nurse who will be admitting the patient. The nurse declined report from this RN and states she does not need a nurse to nurse report
--- NOTE | 2022-10-22 12:13 | PC.NURSE ---
Patient found walking to ED exit door. Patient refused to stay despite being reminded that he is going to [facility] at 4:30. bell tier and Trina notified
--- NOTE | 2022-10-22 17:36 | MHC.CARE ---
Care Js received a call from [facility] staff Bibi and she reported pt has not arrived. She mentioned pt had a bed available for today at 5:15 pm. She reported he will lose his bed if he does not arrive at [facility] today by 6:15 pm. Care Team left a detailed voice message for pt and provided [facility] phone number for pt to contact.
== END 2022-10-22 12:32 | disposition home or self-care (01) ==
PROVIDERS: Physician Assistant; Emergency Provider Emergency Medicine
DX: K59.00 Constipation, unspecified (principal); R10.30 Lower abdominal pain, unspecified; Z20.822 Contact with and (suspected) exposure to COVID-19; F19.10 Other psychoactive substance abuse, uncomplicated; F11.20 Opioid dependence, uncomplicated; F17.200 Nicotine dependence, unspecified, uncomplicated
CPT/HCPCS: 36415; 74176; 80048; 80076; 81003; 83735; 84443; 85025; 87491; 87591; 87635; 93005; 96372; 99284; J0696

== ENCOUNTER 2022-11-09 08:52 | Emergency (ER) | payer SELFPAY ==
--- NOTE | ~2022-11-09 | XR_ITS ---
EXAMINATION: XR CHEST CLINICAL INFORMATION: Left-sided chest pain with question of pneumonia COMPARISON: None TECHNIQUE: 2 views of the chest were obtained. FINDINGS: No significant abnormality is noted involving the heart, lungs, mediastinum, bony thorax or soft tissues. XR/XR chest 2V IMPRESSION: Unremarkable examination.
[2022-11-09 09:02] VITALS: BP 128/68; BP 133/78; PULSE 73; PULSE 75; RESP 18; TEMP 36.6; O2SAT 100; O2SAT 95; BMI 19.3
--- NOTE | 2022-11-09 09:11 | ECG_ITS ---
Test Reason : L SIDE ABDOMINAL PAIN Blood Pressure : / mmHG Vent. Rate : 070 BPM Atrial Rate : 070 BPM P-R Int : 146 ms QRS Dur : 082 ms QT Int : 408 ms P-R-T Axes : 043 065 063 degrees QTc Int : 440 ms Normal sinus rhythm Normal ECG When compared with ECG of 21-OCT-2022 05:27, No significant change was found Referred By: Miko Ramirez Electronically Signed By:Claus Ch
--- NOTE | 2022-11-09 09:11 | ED_ITS ---
HPI - General Adult General Chief complaint: General Medical Stated complaint: L side abd pain per EMS Time Seen by Provider: 11/09/22 08:53 Source: patient Mode of arrival: EMS Limitations: language barrier (Patient speaks some [place], 1st language is French, whitesmith used) History of Present Illness HPI narrative: 37-year-old male who presents emergency department for evaluation of left-sided chest pain. Patient states that he is homeless. He used heroin intranasally around 08:00 hours. He states that [place] and woke up with left-sided chest pain. Describes the pain as a tightness which is 6/10 at its worst. The pain is worse with breathing. He den ied fever but he states that he has had chills. He denied rhinorrhea, sore throat. He states he has had a nonproductive cough for several days. He denied shortness of breath or dyspnea on exertion. He denied nausea, vomiting, diarrhea, frequency, urgency or dysuria. He is complaining of constipation and states he is having difficulty moving his bowels over the last several days. He denied abdominal pain. The patient states that he is feeling constipated. He was seen in the emergency department on 10/21/2022 for lower abdominal pain , constipation times several and polysubstance use disorder and dysuria. His workup was negative and he was accepted at [facility] for rehab treatment. Related Data Previous Rx's Medication Instructions Recorded levofloxacin 750 mg tablet 750 mg PO DAILY #7 tabs 07/27/22 ibuprofen 600 mg tablet 600 mg PO Q6H PRN pain #30 tabs 11/09/22 sennosides 17.2 mg tablet (Senokot 17.2 mg PO BID PRN constipation 11/09/22 Extra Strength) #20 tabs Allergies Allergy/AdvReac Type Severity Reaction Status Date / Time seafood Allergy Hives Verified 10/21/22 05:26 Review of Systems Review of Systems: Yes all other systems are reviewed and are negative [facility] Past Medical History [facility] Narrative: Past medical history: Polysubstance use disorder. Social history: Patient is homeless. He does smoke cigarettes. He denies tobacco use. He does admit to using heroin intranasally any last used at 08:00 hours on the morning of evaluation. Social History Social History Alcohol intake: former Patient Tobacco Use Status: Current everyday Tobacco user Smoked in Last 30 Days: Yes Use of substances other than those prescribed or required for medical reasons: Yes Substance Use Type: Crack/Cocaine and Heroin Substance Use Frequency: Occasionally Advance Directives: No Advance Directives Information Provided: No Physical Exam ED Vital Signs: Vital Signs - 24 hr 11/09/22 09:02 Temperature 97.8 F Pulse Rate 73 Respiratory Rate 18 Blood Pressure 128/68 Pulse Oximetry 100 Oxygen Delivery Method Room Air BMI result Body Mass Index 19.3 Const Other: Very thin, male patient, BMI 19.4 pleasant, cooperative does not appear to be in distress, answers questions appropriately. HENMT Head: Yes normal to inspection, Yes normocephalic and Yes atraumatic Ears: external ears normal General nose exam: Normal external nose present Face and sinus: Yes normal facial exam Mouth: Normal oral and palatal mucosa present Throat: Yes posterior oropharynx normal Eyes General: appearance normal, both eyes and all related structures Pupils: Equal, round and reactive pupils present Neck Neck: Yes normal visual inspection, Yes no lymphadenopathy, Yes trachea midline and Yes supple Chest Chest palpation & inspection: normal inspection of the chest and tenderness (Moderate left chest wall tenderness, no rashes or lesions noted) Resp Effort & Inspection: normal respiratory effort and able to speak in complete sentences Auscultation: clear to auscultation bilaterally Cardio Rate: regular rate Rhythm: regular rhythm Heart sounds: S1 normal heart sound present, S2 normal heart sound present and no murmurs GI Inspection: Yes normal to inspection Palpation (GI): Soft to palpation, nontender and no guarding Auscultation: normal bowel sounds General: Yes no CVA tenderness Back/Spine/Pelvis Back: no CVA tenderness Skin General skin exam: no rashes or lesions noted Neuro Cranial nerves: Yes CN's II-XII intact bilaterally and Yes Equal, round and reactive pupils present Cognition (Neuro): normal cognition Motor exam (neuro): 5/5 motor strength present throughout Extrem General: Yes normal to inspection Psych Appearance: grossly normal Speech and movement: Normal speech and movement present Affect: normal affect Attitude: cooperative Thought process: Normal thought process present Thought content: Normal thought content present Course Course Course Narrative: 37-year-old male with a history of polysubstance use disorder who used to intranasal Narcan at 08:00 hours on the morning arrival then woke up 1 hour later with left-sided chest pain. Patient describes the pain is a tightness which is worse with breathing and is 6/10. His vital signs were normal with an O2 saturation of 100% on room air. Lung exam revealed symmetric breath sounds. He does have left-sided chest wall tenderness with no rashes or lesions noted to the chest wall. I ordered CBC, CMP, troponin, EKG and chest x-ray. Patient's pain was treated with ibuprofen 600 mg orally. 1141: Laboratory evaluation: CBC normal. CMP normal. High sensitivity troponin I detectable but not elevated at 4.2. Chest x-ray was unremarkable. Twelve EKG revealed no significant findings. Patient's pain is most likely musculoskeletal. The patient will be discharged home. Medications Administered Discontinued Medications Generic Name Dose Route Start Last Admin Trade Name Freq PRN Reason Stop Dose Admin Ibuprofen 600 mg 11/09/22 09:11 11/09/22 09:20 Ibuprofen 600 Mg Tablet PO 11/09/22 09:12 600 mg ONCE STA Administration Medical Decision Making Lab Data [facility] Lab Attestation statement: I reviewed the patient's lab results. Result Diagrams: 11/09/22 09:34 11/09/22 09:34 Labs: Lab Results 11/09/22 11/09/22 11/09/22 Range/Units 09:34 09:34 09:34 WBC 10.4 (4.8-10.8) X10*3/uL RBC 4.23 L (4.60-5.80) X10*6/uL Hgb 12.7 L (14.0-18.0) g/dl Hct 38.8 L (42.0-52.0) % MCV 91.7 (80.0-98.0) fL MCH 30.0 (27.0-33.0) pg MCHC 32.7 (31.0-36.0) g/dl RDW 13.4 (11.0-16.0) % Plt Count 354 (160-400) X10*3/uL MPV 8.9 L (9.4-12.4) fL Immature Gran % (Auto) 0.3 (0.0-0.4) % Neut % (Auto) 64.3 (45-73) % Lymph % (Auto) 22.8 (20-40) % [place] % (Auto) 8.4 (2-11) % Eos % (Auto) 3.2 (0-4) % Baso % (Auto) 1.0 (0-2) % Lymph # (Auto) 2.4 (1.2-4.9) X10*3/uL [place] # (Auto) 0.9 (0.1-1.2) X10*3/uL Eos # (Auto) 0.3 (0.0-0.4) X10*3/uL Baso # (Auto) 0.1 (0.0-0.2) X10*3/uL Abs Immat Gran (auto) 0.03 (0.00-0.03) X10*3/uL Absolute Neuts (auto) 6.7 (2.0-8.3) x10*3/uL Absolute Nucleated RBC 0.000 (0.0-0.012) X10*3/uL Nucleated RBC % (auto) 0.0 (0.0-0.2) /100WBC Sodium 139 (135-145) mmol/L Potassium 3.8 (3.3-5.1) mmol/L Chloride 103 (96-108) mmol/L Carbon Dioxide 29 (22-29) mmol/L Anion Gap 11 L (12-20) BUN 18 H (9-16) mg/dL Creatinine 0.81 (0.5-1.4) mg/dL Estim Creat Clear Calc 109.1 Estimated GFR > 60 Random Glucose 77 (60-115) mg/dL Calcium 9.6 D (8.4-10.2) mg/dL Total Bilirubin 0.5 (0.0-1.0) mg/dL AST 30 D (5-37) U/L ALT 26 (0-40) U/L Alkaline Phosphatase 49 (39-117) U/L Troponin I High Sens 4.2 (<3.5-35.0) ng/L Total Protein 7.7 (6.5-8.0) g/dL Albumin 4.7 (3.5-5.0) g/dL Independent Interpretation I performed an independent interpretation of an: EKG Interpretation: My interpretation of this EKG done at 09:20 hours is as follows: Normal sinus rhythm rate of 70, normal SD interval, QRS duration QTC interval, inverted T- wave in V1, no ST segment elevation, no ST segment depression, compared to EKG dated 10/21/2022 there are no significant changes. Discharge Plan Discharge Clinical Impression: Heroin use, Acute chest wall pain Patient Disposition: Home, Self-Care Instructions: Chest Wall Pain (ED) Additional Instructions: Your blood work was normal. Your EKG was unremarkable. Your chest x-ray was normal. Your pain is most likely caused by muscle injury/inflammation to your chest. Take ibuprofen 600 mg, 1 pill every 6 hours as needed for pain. Take Senokot Follow-up with your doctor in 2 days. Please return to the emergency department if your symptoms get worse or if you develop any symptoms that are concerning to you. Your are being discharged home with intranasal Narcan. If you are going to continue to use heroin, you should make sure that there is a sober person with you that is not using drugs and that this person can administer intranasal Narcan in the event that you stop breathing. Prescriptions: New ibuprofen 600 mg tablet 600 mg PO Q6H PRN (Reason: pain) Qty: 30 0RF Senokot Extra Strength 17.2 mg tablet 17.2 mg PO BID PRN (Reason: constipation) Qty: 20 0RF No Action levofloxacin 750 mg tablet 750 mg PO DAILY Qty: 7 0RF
[2022-11-09] MEDS: Ibuprofen 600 MG TABLET PO (09:20)
[2022-11-09 09:38] LABS: MANUAL DIFF FLAG NO
[2022-11-09 09:40] LABS: Basophils Absolute Auto 0.1 X10*3/uL (0.0-0.2); Eosinophils Absolute Auto 0.3 X10*3/uL (0.0-0.4); Eosinophils Percent Auto 3.2 % (0-4); Hematocrit 38.8 % (42.0-52.0); Hemoglobin 12.7 g/dl (14.0-18.0); Imm Gran Abs Auto 0.03 X10*3/uL (0.00-0.03); Imm Gran Pct Auto 0.3 % (0.0-0.4); Lymphocytes Absolute Auto 2.4 X10*3/uL (1.2-4.9); Lymphocytes Percent Auto 22.8 % (20-40); Mean Corpuscular HGB Conc 32.7 g/dl (31.0-36.0); Mean Corpuscular Volume 91.7 fL (80.0-98.0); Mean Platelet Volume 8.9 fL (9.4-12.4); Monocytes Absolute Auto 0.9 X10*3/uL (0.1-1.2); Monocytes Percent Auto 8.4 % (2-11); Neutrophils Absolute Auto 6.7 x10*3/uL (2.0-8.3); Neutrophils Percent Auto 64.3 % (45-73); Platelet Count 354 X10*3/uL (160-400); Red Blood Count 4.23 X10*6/uL (4.60-5.80); Red Cell Distribution Width 13.4 % (11.0-16.0); White Blood Count 10.4 X10*3/uL (4.8-10.8)
[2022-11-09 10:11] LABS: Alanine Aminotransferase 26 U/L (0-40); Albumin Level 4.7 g/dL (3.5-5.0); Alkaline Phosphatase 49 U/L (39-117); Anion Gap 11 (12-20); Aspartate Amino Transferase 30 U/L (5-37); Blood Urea Nitrogen 18 mg/dL (9-16); Calcium 9.6 mg/dL (8.4-10.2); Carbon Dioxide 29 mmol/L (22-29); Chloride 103 mmol/L (96-108); Creatinine Clr Calc Pharmacy 109.1; Estimated Glomerular Filt Rate > 60; Glucose Random 77 mg/dL (60-115); Potassium 3.8 mmol/L (3.3-5.1); Sodium 139 mmol/L (135-145); Total Protein 7.7 g/dL (6.5-8.0)
[2022-11-09 10:24] LABS: Bilirubin Total 0.5 mg/dL (0.0-1.0)
[2022-11-09 11:27] LABS: Troponin-I High Sensitivity 4.2 ng/L (<3.5-35.0)
[2022-11-09 12:12] VITALS: BP 106/60; PULSE 66; RESP 20; O2SAT 100
[2022-11-09] MEDS: Naloxone HCl Nasal TAKE HOME 4 MG SPRAY NOSTRILALT (14:17)
== END 2022-11-09 14:20 | disposition home or self-care (01) ==
PROVIDERS: Emergency Provider Emergency Medicine Emergency Medical Services
DX: R07.89 Other chest pain (principal); F17.200 Nicotine dependence, unspecified, uncomplicated; F19.90 Other psychoactive substance use, unspecified, uncomplicated
CPT/HCPCS: 36415; 71046; 80053; 84484; 85025; 93005; 99284; 99285